=== PATIENT | female | born 1990 | race Two or more races ===

== ENCOUNTER 2022-02-07 09:49 | Outpatient (CLI) | payer OTHER ==
[~2022-02-07 09:49] MED LIST: AMOXICILLIN500 MG PO
== END 2022-02-07 09:57 | disposition home or self-care (01) ==
LOC: RX STUDY 09:49
PROVIDERS: ATTEND Obstetrics & Gynecology
DX: R19.00 Intra-abdominal and pelvic swelling, mass and lump, unspecified site (principal)

== ENCOUNTER 2022-08-31 10:18 | Emergency (ER) | payer OTHER ==
[~2022-08-31] VITALS: Ht 162.6 cm; Wt 52.2 kg
== END 2022-08-31 11:45 | disposition home or self-care (01) ==
LOC: ER 10:18
DX: T63.2X1A Toxic effect of venom of scorpion, accidental (unintentional), initial encounter (principal); Y92.89 Other specified places as the place of occurrence of the external cause

== ENCOUNTER → 2022-10-04 | Emergency (ER) | payer OTHER ==
[~2022-10-04] VITALS: Ht 162.6 cm; Wt 52.2 kg
[~2022-10-04] MED LIST changes: +SINGULAIR 10MG10 MG PO; +ZYRTEC10 M3 PO
== END | disposition home or self-care (01) ==
LOC: ER 10:24
DX: N39.0 Urinary tract infection, site not specified (principal); Z20.828 Contact with and (suspected) exposure to other viral communicable diseases

== ENCOUNTER 2024-02-07 12:53 | Emergency (ER) | payer OTHER ==
[~2024-02-07] VITALS: Ht 162.6 cm; Wt 52.2 kg
[2024-02-07] MEDS ORDERED: SYMBICORT 16010.2 GM (13:45)
[2024-02-07] MEDS ORDERED: XOPENEX CO1.25 MG/0. (13:46)
== END 2024-02-07 16:57 | disposition home or self-care (01) ==
LOC: ER 12:53
DX: J06.9 Acute upper respiratory infection, unspecified (principal)